=== PATIENT | female | born 1995 | race Asian ===

== ENCOUNTER 2021-01-15 03:53 | Inpatient (IN) ==
[2021-01-15 04:44] LABS: ABS Lymphocytes 2.1 10^3/ul (1.0-4.8); ABS Monocytes 0.5 10^3/ul (0-0.8); ABS Neutrophils 7.5 10^3/ul (1.5-7.7); Eosinophil % 0.4 %; Hematocrit 36 % (35-47); Hemoglobin 12.3 g/dL (12.0-16.0); Lymphocyte % 21.1 %; Mean Corpuscular HGB Conc 34 g/dL (31-36); Mean Corpuscular Hemoglobin 29 pg (27-31); Mean Corpuscular Volume 85 fL (80-97); Mean Platelet Volume 7.4 fL (7.4-10.4); Platelet Count 301 10^3/uL (150-450); Red Blood Count 4.26 10^6 /uL (3.70-4.87); Red Cell Distribution Width 13 % (10-15); White Blood Count 10.2 10^3/uL (3.5-10.8)
[2021-01-15 05:02] LABS: ALT 16 U/L (7-52); AST 18 U/L (13-39); Albumin 4.2 g/dL (3.2-5.2); Albumin/Globulin Ratio 1.5 (1-3); Alkaline Phosphatase 91 U/L (35-149); Anion Gap 7 mmol/L (2-11); Blood Urea Nitrogen 6 mg/dL (6-24); CO2 Carbon Dioxide 26 mmol/L (22-32); Calcium 9.2 mg/dL (8.6-10.3); Chloride 103 mmol/L (101-111); EGFR African American 141.9 (>60); EGFR Non-African American 117.3 (>60); Globulin 2.8 g/dL (2-4); Glucose 126 mg/dL (70-100); Potassium 3.8 mmol/L (3.5-5.0); Sodium 136 mmol/L (135-145)
[2021-01-15 05:22] LABS: Acetaminophen < 15 mcg/mL; Alcohol, S < 10 mg/dL (<10); Salicylate < 2.50 mg/dL (<30)
[2021-01-15 05:37] LABS: TSH Ultra Thyroid Stim Horm 2.91 mcIU/mL (0.34-5.60)
[2021-01-15 07:16] LABS: Urine Appearance Cloudy; Urine Bilirubin Negative (Negative); Urine Blood Negative (Negative); Urine Color Yellow; Urine Glucose Negative (Negative); Urine Ketones Negative (Negative); Urine Nitrite Negative (Negative); Urine Protein Negative (Negative); Urine Specific Gravity 1.013 (1.002-1.030); Urine Urobilinogen Negative (Negative)
[2021-01-15 07:24] LABS: Urine Bacteria 1+ (Absent); Urine Red Blood Cell Trace(0-2/hpf) (Absent); Urine Squamous Epithelial Cell Present (Absent); Urine White Blood Cell Trace(0-5/hpf) (Absent)
[2021-01-15 07:39] LABS: Urine Benzodiazepine Screen None Detected (None Detect); Urine Cannabinoids Screen None Detected (None Detect); Urine Opiates Screen None Detected (None Detect)
[2021-01-15] MEDS ORDERED: Al Hydrox/Mg Hydrox/Simet LIQ 30 ML UDC PO PRN (11:28)
[2021-01-15] MEDS: PTO: Norgestimate-Eth Estradiol(NF) TAB PO SCH (21:27)
[2021-01-16 08:11] LABS: HDL Cholesterol 51.4 mg/dL
[2021-01-16] MEDS: Ondansetron ODT 4 mg TAB 4 MG TAB SL PRN (13:03)
[2021-01-16] MEDS: PTO: Norgestimate-Eth Estradiol(NF) TAB PO SCH (20:05)
[2021-01-17] MEDS: Ondansetron ODT 4 mg TAB 4 MG TAB SL PRN (10:15)
[2021-01-17 17:32] VITALS: BP 116/76
[2021-01-17] MEDS: PTO: Norgestimate-Eth Estradiol(NF) TAB PO SCH (20:05)
== END 2021-01-17 21:30 | disposition home or self-care (01) | DRG 756 ==
LOC: ED 03:53 → BSU 13:48
PROVIDERS: ADMIT Psychiatry & Neurology Psychiatry; ATTEND Psychiatry & Neurology Psychiatry